=== PATIENT | male | born 1985 | race African-American/Black ===

== ENCOUNTER 2024-08-01 23:23 | Emergency (ER) | payer OTHER ==
[2024-08-02 00:41] LABS: Absolute Basophils 0.1 K/uL (0-0.5); Absolute Eosinophils 0.6 K/uL (0-0.5); Absolute Lymphocytes (CBC) 1.1 K/uL (0.7-4.9); Absolute Monocytes 0.4 K/uL (0.1-1.3); Absolute Neutrophil 2.4 K/uL (1.8-8.0); Basophils % 1.2 % (0-1.3); Eosinophils % 13.5 % (0-4.4); Hematocrit 20.2 % (39.6-49.0); Hemoglobin 6.7 g/dL (13.6-17.9); Lymphocytes % 24.5 % (15.3-44.8); MCHC 33.2 g/dL (32.0-36.0); MCV 90.2 fL (80-100); MPV 9.1 fL (7.6-11.3); Neutrophils % 52.8 % (41.7-73.7); Nucleated Red Blood Cells % 0.3 % (0-0); PT Prothrombin Time 11.8 SECONDS (10-13.0); Platelets 134 thou/uL (152-406); Protime INR 1.04; RBC Red Blood Cell Count 2.24 M/uL (4.33-5.43); Red Cell Distribution Width 16.8 % (12.1-15.2)
[2024-08-02 01:13] LABS: ALT/SGPT 29 U/L (16-61); AST/SGOT 22 U/L (15-37); Albumin/Globulin Ratio 0.7 (1.1-1.8); Alkaline Phosphatase 126 U/L (45-117); BUN Blood Urea Nitrogen 60 mg/dL (7-18); Bicarbonate 31 mEq/L (21-32); Bilirubin Total 0.3 mg/dL (0.2-1.0); Globulin 4.1 g/dL (2.3-3.5); Glomerular Filtration Rate 4 ml/min (=/>90); Glucose Level 103 mg/dL (74-106); NT PRO-BNP 109513 pg/mL (<125); Protein, Total 7.1 g/dL (6.4-8.2); Sodium Level 139 mEq/L (136-145)
[2024-08-02 01:15] LABS: Bilirubin Direct < 0.2 mg/dL (0-0.2); Bilirubin Indirect, Calculated 0.1 mg/dL (0.2-0.8)
[2024-08-02 01:16] LABS: Troponin High Sensitivity 64.5 pg/mL (<58.9)
--- NOTE | 2024-08-02 01:20 | ER ---
Nurse's Notes [facility] Name: Maynor Mariano Age: 38 yrs Sex: Male : 1985 Arrival Date: 08/01/2024 Time: 23:23 Bed 20 Private MD: Diagnosis: Anemia in chronic kidney disease;Other specified anemias Presentation: 08/01 23:40 Chief complaint: Patient states: CARE PROVIDER NOTIFIED OF LOW HEMOGLOBIN LEVEL AT 6. ha1 23:40 Coronavirus screen: Client denies travel out of the [place] in the last 14 days. Ebola ha1 Screen: No symptoms or risks identified at this time. Initial Sepsis Screen: Does the patient meet any 2 criteria? No. Patient's initial sepsis screen is negative. Does the patient have a suspected source of infection? No. Patient's initial sepsis screen is negative. Risk Assessment: Do you want to hurt yourself or someone else? Patient reports no desire to harm self or others. Onset of symptoms was August 02, 2024. 23:40 Method Of Arrival: Ambulatory ha1 23:40 Acuity: ROSA ELENA 3 ha1 Triage Assessment: 00:40 General: Appears comfortable, Behavior is calm, cooperative. Pain: Denies pain. Neuro: ha1 Level of Consciousness is awake, alert, obeys commands, Oriented to person, place, time, situation. Cardiovascular: Patient's skin is warm and dry. Respiratory: Airway is patent Respiratory effort is even, unlabored, Respiratory pattern is regular, symmetrical. Historical: - Allergies: 00:40 No Known Allergies; ha1 - PMHx: 00:40 Hypertensive disorder; ha1 - PSHx: 00:40 DIALYSIS TUE, THURS, SAT. (2024); ha1 - Immunization history:: Adult Immunizations up to date. - Infectious Disease History:: Denies. - Social history:: Smoking status: Patient reports use of chewing tobacco. - Family history:: not pertinent. Screenin/15 00:33 [facility] ED Fall Risk Assessment (Adult) History of falling in the last 3 months, bm8 including since admission No falls in past 3 months (0 pts) Confusion or Disorientation No (0 pts) Intoxicated or Sedated No (0 pts) Impaired Gait No (0 pts) Mobility Assist Device Used No (0 pt) Altered Elimination No (0 pt) Score/Fall Risk Level 0 - 2 = Low Risk Oriented to surroundings, Maintained a safe environment, Educated pt \T\ family on fall prevention, incl call for assistance when getting out of bed, Assessed \T\ reinforced patient's understanding of fall precautions, Hourly rounding (assess needs \T\ fall precautionary measures) done, Used ambulatory aids as needed (educated on \T\ assisted with), Used gait belt as appropriate. Abuse screen: Denies threats or abuse. Nutritional screening: No deficits noted. Tuberculosis screening: No symptoms or risk factors identified. Assessment: 00:33 Reassessment: Patient appears in no apparent distress at this time. Patient and/or bm8 family updated on plan of care and expected duration. Pain level reassessed. Patient is alert, oriented x 3, equal unlabored respirations, skin warm/dry/pink. Patient denies pain at this time. 01:24 Reassessment: Patient appears in no apparent distress at this time. No changes from 8 previously documented assessment. Patient is alert, oriented x 3, equal unlabored respirations, skin warm/dry/pink. Pt has decided that he would prefer to come back tomorrow after dialysis. MD is aware and has discharged pt after speaking with him. Vital Signs: 08/01 23:40 BP 168 / 104; Pulse 66; Resp 19 S; Temp 98.2(O); Pulse Ox 100% on R/A; Weight 90.72 kg; ha1 Height 6 ft. 2 in. ; 08/02 00:33 BP 154 / 96; Pulse 75; Resp 18; Temp 98.2; Pulse Ox 100% ; Pain 0/10; bm8 01:24 BP 149 / 97; Pulse 69; Resp 15; Temp 98.2; Pulse Ox 100% ; Pain 0/10; bm8 08/01 23:40 Body Mass Index 25.68 (90.72 kg, 187.96 cm) ha1 08/02 00:33 Pain Scale: Adult bm8 01:24 Pain Scale: Adult bm8 [place] Coma Score: 00:33 Eye Response: spontaneous(4). Motor Response: obeys commands(6). Verbal Response: bm8 oriented(5). Total: 15. 01:24 Eye Response: spontaneous(4). Motor Response: obeys commands(6). Verbal Response: bm8 oriented(5). Total: 15. 20:13 Eye Response: spontaneous(4). Motor Response: obeys commands(6). Verbal Response: sp4 oriented(5). Total: 15. ED Course: 08/01 23:26 Patient arrived in ED. gm2 23:27 Percy Ortega MD is Attending Physician. sp4 08/02 00:01 Triage completed. ha1 00:11 Marquise Tripp, RN is Primary Nurse. bm8 00:33 Patient has correct armband on for positive identification. Bed in low position. Call bm8 light in reach. Side rails up X 1. Adult w/ patient. Client placed on continuous cardiac and pulse oximetry monitoring. NIBP monitoring applied. cardiac monitor technician on. Pulse ox on. NIBP on. Door closed. Noise minimized. Pillow given. Verbal reassurance given. Head of bed elevated. 00:33 No provider procedures requiring assistance completed. Initial lab(s) drawn, by , yanci sent to lab. EKG done, by ED staff, reviewed by Percy Ortega MD T\T\S collected, blood band applied to patient. Inserted saline lock: 20 gauge in right antecubital area, using aseptic technique. Blood collected. Flushed with 10 mL NS. Patient maintains SpO2 saturation greater than 95% on room air. 01:19 Eliazar Reese DO is Referral Physician. sp4 01:24 Provided Education on: post er care. bm8 01:24 IV discontinued, intact, bleeding controlled, No redness/swelling at site. Pressure bm8 dressing applied. 01:26 Arm band placed on right wrist. bm8 Administered Medications: No medications were administered Medication: 00:33 VIS not applicable for this client. bm8 Outcome: 01:20 Discharge ordered by . sp4 01:24 Discharged to home ambulatory, bm8 01:24 Condition: stable 01:24 Discharge instructions given to patient, family, Instructed on discharge instructions, follow up and referral plans. no drinking with medication, no driving heavy equipment, medication usage, safety practices, Demonstrated understanding of instructions, follow-up care, medications, 01:26 Patient left the ED. bm8 Signatures: Tiara Stacy RN RN 1 Percy rOtega MD MD sp4 Sussy Rivera 2 Marquise Tripp, RN RN bm8
--- NOTE | 2024-08-02 01:20 | EDPHYS ---
Physician Documentation [facility] Name: Maynor Mariano Age: 38 yrs Sex: Male : 1985 Arrival Date: 08/01/2024 Time: 23:23 Bed 20 Private MD: ED Physician Percy Ortega HPI: 08/01 23:27 This 38 yrs old Black Female presents to ER via Unassigned with complaints of Abnormal sp4 Lab Results. 08/02 20:13 38-year-old male with history of end-stage renal disease on hemodialysis for the past 4 sp4 years presents with report of low hemoglobin. Patient states his blood counts were checked 2 days ago and hemoglobin came up to 6. Patient is here for evaluation. Denied any symptoms.. Historical: - Allergies: 08/01 00:40 No Known Allergies; ha1 - PMHx: 00:40 Hypertensive disorder; ha1 - PSHx: 00:40 DIALYSIS TUE, TH, SAT. (2024); ha1 - Immunization history:: Adult Immunizations up to date. - Infectious Disease History:: Denies. - Social history:: Smoking status: Patient reports use of chewing tobacco. - Family history:: not pertinent. ROS: 08/02 20:13 Constitutional: Negative for fever, chills, and weight loss, sp4 All other systems are negative, Exam: 20:13 Constitutional: This is a well developed, well nourished patient who is awake, alert, sp4 and in no acute distress. Head/Face: Normocephalic, atraumatic. Eyes: Pupils equal round and reactive to light, extra-ocular motions intact. Lids and lashes normal. Conjunctiva and sclera are not injected. Cornea within normal limits. Periorbital areas with no swelling, redness, or edema. ENT: Nares patent. No nasal discharge, no septal abnormalities noted. Tympanic membranes are normal and external auditory canals are clear. Oropharynx with no redness, swelling, or masses, exudates, or evidence of obstruction, uvula midline. Mucous membranes moist. Neck: Trachea midline, no thyromegaly or masses palpated, and no cervical lymphadenopathy. Supple, full range of motion without nuchal rigidity, or vertebral point tenderness. Chest/axilla: Normal chest wall appearance and motion. Nontender with no deformity. No lesions are appreciated. Cardiovascular: Regular rate and rhythm with a normal S1 and S2. No gallops, murmurs, or rubs. Normal PMI, no JVD. No pulse deficits. Respiratory: Lungs have equal breath sounds bilaterally, clear to auscultation and percussion. No rales, rhonchi or wheezes noted. No increased work of breathing, no retractions or nasal flaring. Abdomen/GI: Soft, with normal bowel sounds. No distension or tympany. No guarding or rebound. No evidence of tenderness throughout. Back: No spinal tenderness. No costovertebral tenderness. Skin: Warm, dry with normal turgor. Normal color with no rashes, no lesions, and no evidence of cellulitis. MS/ Extremity: Pulses equal, no cyanosis. Neurovascular intact. Full, normal range of motion. Neuro: Awake and alert, GCS 15, oriented to person, place, time, and situation. Cranial nerves II-XII grossly intact. Motor strength 5/5 in all extremities. Sensory grossly intact. Psych: Awake, alert, with orientation to person, place and time. Behavior, mood, and affect are within normal limits 20:13 ECG was reviewed by the Attending Physician. EKG at 0038 normal sinus rhythm rate 65 otherwise normal EKG, prolonged QT Vital Signs: 08/01 23:40 BP 168 / 104; Pulse 66; Resp 19 S; Temp 98.2(O); Pulse Ox 100% on R/A; Weight 90.72 kg; ha1 Height 6 ft. 2 in. ; 08/02 00:33 BP 154 / 96; Pulse 75; Resp 18; Temp 98.2; Pulse Ox 100% ; Pain 0/10; bm8 01:24 BP 149 / 97; Pulse 69; Resp 15; Temp 98.2; Pulse Ox 100% ; Pain 0/10; bm8 08/01 23:40 Body Mass Index 25.68 (90.72 kg, 187.96 cm) [facility] 08/02 00:33 Pain Scale: Adult bm8 01:24 Pain Scale: Adult bm8 [place] Coma Score: 00:33 Eye Response: spontaneous(4). Motor Response: obeys commands(6). Verbal Response: bm8 oriented(5). Total: 15. 01:24 Eye Response: spontaneous(4). Motor Response: obeys commands(6). Verbal Response: bm8 oriented(5). Total: 15. 20:13 Eye Response: spontaneous(4). Motor Response: obeys commands(6). Verbal Response: sp4 oriented(5). Total: 15. MDM: 00:38 Differential Diagnosis altered mental status, sepsis, flu, Symptomatic anemia. Data sp4 reviewed: lab test result(s), EKG. Consideration of Admission/Observation Escalation of care including admission/observation considered. ED course: Patient was explained that he needs blood transfusion which will take several hours and will probably necessitate admission to the hospital. Patient states that at this time he must go home but he states he will return later today for the management in the emergency room. Patient at this time is stable vital signs and we deem appropriate discharge on the informed basis.. 01:18 Data reviewed: vital signs, nurses notes. ED course: Patient declines transfusion at sp4 this time states he must go home and come back tomorrow for transfusion and further evaluation. We will provide patient with informed discharge. Vital signs are stable. Patient does understand the risks of leaving at this time but since he is overall stable informed discharge is appropriate. 01:20 Medical Screening Exam initiated 08/01 23:57 Order name: Basic Metabolic Panel; Complete Time: 01:08/01 23:57 Order name: CBC with Diff; Complete Time: 01:08/01 23:57 Order name: LFT's; Complete Time: 01:08/01 23:57 Order name: NT PRO-BNP; Complete Time: 01:08/01 23:57 Order name: PT-INR; Complete Time: 01:08/01 23:57 Order name: Troponin HS; Complete Time: 01:08/01 23:58 Order name: Type And Screen; Complete Time: 01:08/01 23:57 Order name: EKG; Complete Time: 23:57 08/01 23:57 Order name: Cardiac monitoring; Complete Time: 00:33 08/01 23:57 Order name: EKG - Nurse/Tech; Complete Time: 00:33 08/01 23:57 Order name: IV Saline Lock; Complete Time: 00:33 08/01 23:57 Order name: Labs collected and sent; Complete Time: 00:33 sp4 08/01 23:57 Order name: O2 Per Protocol; Complete Time: 00:33 sp4 08/01 23:57 Order name: O2 Sat Monitoring; Complete Time: 00:33 sp4 EC:38 Rate is 65 beats/min. Rhythm is regular, Normal Sinus Rhythm. QRS [place] is Normal. [place] sp4 interval is normal. QRS interval is normal. QT interval is prolonged. No Q waves. T waves are Normal. No ST changes noted. Clinical impression: No evidence of ischemia. Interpreted by me. Reviewed by me. Administered Medications: No medications were administered Disposition Summary: 08/02/24 01:20 Discharge Ordered Problem: new sp4 Symptoms: have improved sp4 Condition: Stable sp4 Diagnosis - Anemia in chronic kidney disease sp4 - Other specified anemias sp4 Followup: sp4 - With: Eliazar Reese DO - When: 7 - 10 days - Reason: Recheck today's complaints Discharge Instructions: - Discharge Summary Sheet sp4 - Anemia sp4 Forms: - Patient Portal Instructions sp4 Signatures: Dispatcher [employer] EDMS Tiara Stacy RN RN ha1 Percy Ortega MD MD sp4 Corrections: (The following items were deleted from the chart) 08/01 23:57 23:57 BASIC METABOLIC PANEL+C.LAB.BRZ ordered. EDMS EDMS 23:57 23:57 CBC+H.LAB.BRZ ordered. EDMS EDMS 23:57 23:57 HEPATIC FUNCTION+C.LAB.BRZ ordered. EDMS EDMS 23:57 23:57 PROBNP+C.LAB.BRZ ordered. EDMS EDMS 23:58 23:57 PROTIME (+INR)+COAG.LAB.BRZ ordered. EDMS EDMS 23:58 23:57 Troponin High Sensitivity+C.LAB.BRZ ordered. EDMS EDMS
[2024-08-02 01:33] VITALS: TEMP 98.2; O2SAT 100
[2024-08-02 01:36] VITALS: BP 149/97
== END 2024-08-02 01:26 | disposition home or self-care (01) ==
LOC: EDSEX 23:23 → ER 23:23
DX: I12.0 Hypertensive chronic kidney disease with stage 5 chronic kidney disease or end stage renal disease (principal); D63.1 Anemia in chronic kidney disease; D64.89 Other specified anemias; N18.6 End stage renal disease; Z99.2 Dependence on renal dialysis; F17.220 Nicotine dependence, chewing tobacco, uncomplicated
CPT/HCPCS: 36415; 80048; 80076; 83880; 84484; 85025; 85610; 86850; 86900; 86901; 93005

== ENCOUNTER 2024-08-02 10:39 | Inpatient (IN) | payer OTHER ==
[2024-08-02 11:50] LABS: Absolute Basophils 0.1 K/uL (0-0.5); Absolute Eosinophils 0.6 K/uL (0-0.5); Absolute Lymphocytes (CBC) 0.8 K/uL (0.7-4.9); Absolute Monocytes 0.4 K/uL (0.1-1.3); Basophils % 1.3 % (0-1.3); Eosinophils % 12.5 % (0-4.4); Hematocrit 19.9 % (39.6-49.0); Hemoglobin 6.6 g/dL (13.6-17.9); Lymphocytes % 17.2 % (15.3-44.8); MCHC 33.1 g/dL (32.0-36.0); MCV 90.5 fL (80-100); MPV 8.5 fL (7.6-11.3); Monocytes % 7.7 % (3.3-12.3); Neutrophils % 61.3 % (41.7-73.7); Nucleated Red Blood Cells % 0.2 % (0-0); Platelets 132 thou/uL (152-406); Red Cell Distribution Width 16.5 % (12.1-15.2)
[2024-08-02] MEDS ORDERED: NA CHLORIDE 0.9% 250 ML ONE (13:59)
--- NOTE | 2024-08-02 15:40 | ER ---
Nurse's Notes [facility] Name: Maynor Mariano Age: 38 yrs Sex: Male : 1985 Arrival Date: 08/02/2024 Time: 10:39 Bed 6 Private MD: Diagnosis: End-stage renal disease;Symptomatic anemia Presentation: 08/02 10:47 Chief complaint: Patient states: my Hgb is at a 6 , had labs drawn last night , was iw seen here last night and was told he needed a blood transfusion but was not prepared to wait the 8 hours. Coronavirus screen: At this time, the client does not indicate any symptoms associated with coronavirus-19. Ebola Screen: No symptoms or risks identified at this time. Initial Sepsis Screen: Does the patient meet any 2 criteria? No. Patient's initial sepsis screen is negative. Does the patient have a suspected source of infection? No. Patient's initial sepsis screen is negative. Risk Assessment: Do you want to hurt yourself or someone else? Patient reports no desire to harm self or others. 10:47 Method Of Arrival: Ambulatory iw 10:47 Acuity: ROSA ELENA 3 iw 10:48 Onset of symptoms was August 02, 2024. iw Triage Assessment: 10:55 General: Appears in no apparent distress. Behavior is calm, cooperative. Pain: Denies iw pain. Neuro: Level of Consciousness is awake, alert, obeys commands, Oriented to person, place, time, situation, Moves all extremities. Full function. Respiratory: Respiratory effort is even, unlabored, Respiratory pattern is regular, symmetrical. Historical: - Allergies: 10:50 No Known Allergies; iw - Home Meds: 10:50 hydralazine 25 mg oral tablet 4 tabs 3 times per day [Active]; carvedilol 25 mg oral iw tablet 2 tab 2 times per day [Active]; lisinopril 20 mg Oral tablet nightly [Active]; 10:53 nifedipine 90 mg oral tablet, extended release 2 times per day [Active]; iw - PMHx: 10:50 Hypertensive disorder; iw - PSHx: 10:50 DIALYSIS TUE (2024); iw - Immunization history:: Adult Immunizations not up to date. - Infectious Disease History:: Denies. - Social history:: Smoking status: Patient reports the use of cigarette tobacco products, cigars, Reported history of juuling and/or vaping. - Family history:: not pertinent. Screenin:31 [facility] ED Fall Risk Assessment (Adult) History of falling in the last 3 months, ap3 including since admission No falls in past 3 months (0 pts) Confusion or Disorientation No (0 pts) Intoxicated or Sedated No (0 pts) Impaired Gait No (0 pts) Mobility Assist Device Used No (0 pt) Altered Elimination No (0 pt) Score/Fall Risk Level 0 - 2 = Low Risk Oriented to surroundings, Maintained a safe environment, Educated pt \T\ family on fall prevention, incl call for assistance when getting out of bed, Assessed \T\ reinforced patient's understanding of fall precautions, Hourly rounding (assess needs \T\ fall precautionary measures) done, Used ambulatory aids as needed (educated on \T\ assisted with). Abuse screen: Denies threats or abuse. Nutritional screening: No deficits noted. Tuberculosis screening: No symptoms or risk factors identified. Assessment: 11:30 General: Appears in no apparent distress. Behavior is calm, cooperative, appropriate ap3 for age. Pain: Denies pain. Neuro: Level of Consciousness is awake, alert, obeys commands, Oriented to person, place, time, situation, Appropriate for age. Cardiovascular: Patient's skin is warm and dry. Respiratory: Airway is patent Respiratory effort is even, unlabored, Respiratory pattern is regular, symmetrical. 16:27 Reassessment: pt transported to dialysis. Efren Beasleysupervisor payroll states patient will ss receive bed assignment after dialysis. Vital Signs: 10:47 BP 141 / 90; Pulse 65; Resp 16; Temp 98; Pulse Ox 99% on R/A; Weight 91.63 kg; Height 6 iw ft. 1 in. ; 14:58 BP 155 / 93; Pulse 67; Resp 15; Temp 97.6; Pulse Ox 100% ; ap3 10:47 Body Mass Index 26.65 (91.63 kg, 185.42 cm) iw ED Course: 10:41 Patient arrived in ED. im 10:43 Imer Meeks MD is Attending Physician. rt 10:48 Triage completed. iw 10:52 Arm band placed on. iw 11:30 Radha Garza, EMILIE is Primary Nurse. ap3 11:30 Initial lab(s) drawn, by me. Inserted saline lock: 22 gauge in right antecubital area, ap3 using aseptic technique. Blood collected. Flushed with 10 mL NS. 11:45 Patient has correct armband on for positive identification. Bed in low position. Call ap3 light in reach. Side rails up X 1. Pulse ox on. NIBP on. Door closed. Noise minimized. Warm blanket given. Pillow given. 13:05 Provided Education on: Blood Transfusion. ap3 15:15 Diet tray given. PO fluids given. ap3 15:39 Herber Samaniego is Hospitalizing Provider. rt 16:17 No provider procedures requiring assistance completed. Patient admitted, IV remains in ap3 place. Administered Medications: No medications were administered Medication: 15:57 Blood products: PRBCs X 1 unit given. ap3 15:58 VIS not applicable for this client. ap3 Outcome: 15:39 Decision to Hospitalize by Provider. rt 16:26 Admitted to accompanied by nurse, via stretcher, on monitor, with chart, Report called ss to EMILIE Perez Dialysis nurse 16:26 Condition: good 16:26 Instructed on the need for admit, 16:28 Patient left the ED. ss Signatures: Brigette Vines RN RN Joslyn Jensen RN RN Radha Garza RN RN ap3 Imer Meeks MD MD rt Aby López Corrections: (The following items were deleted from the chart) 10:49 10:47 Chief complaint: Patient states: my Hgb is at a 6 , had labs drawn last night iw iw 10:52 10:47 BP 141 / 90; Pulse 65bpm; Resp 16bpm; Pulse Ox 99% RA; Temp 98F; iw iw 10:53 10:50 Home Meds: nifedipine 60 mg Oral tablet, extended release 2 times per day; iw iw
--- NOTE | 2024-08-02 15:40 | EDPHYS ---
Physician Documentation [facility] Name: Maynor Mariano Age: 38 yrs Sex: Male : 1985 Arrival Date: 08/02/2024 Time: 10:39 Bed 6 Private MD: ED Physician Imer Meeks HPI: 08/02 11:10 This 38 yrs old Black Male presents to ER via Ambulatory with complaints of Abnormal rt Lab Results. 11:10 Patient is a Thursday, , Thursday dialysis patient who was seen last night for rt symptomatic anemia to 6.7. Ports feeling fatigued, somewhat short of breath but denies other acute complaints, denies active bleeding. Declined transfusion at that time, is back today for transfusion. Denies other acute complaints, symptoms are moderate in severity, no other aggravating or elevating factors.. Historical: - Allergies: 10:50 No Known Allergies; iw - Home Meds: 10:50 hydralazine 25 mg oral tablet 4 tabs 3 times per day [Active]; carvedilol 25 mg oral iw tablet 2 tab 2 times per day [Active]; lisinopril 20 mg Oral tablet nightly [Active]; 10:53 nifedipine 90 mg oral tablet, extended release 2 times per day [Active]; iw - PMHx: 10:50 Hypertensive disorder; iw - PSHx: 10:50 DIALYSIS TUE (2024); iw - Immunization history:: Adult Immunizations not up to date. - Infectious Disease History:: Denies. - Social history:: Smoking status: Patient reports the use of cigarette tobacco products, cigars, Reported history of juuling and/or vaping. - Family history:: not pertinent. ROS: 11:10 Cardiovascular: Negative for chest pain, palpitations, and edema, Abdomen/GI: Negative rt for abdominal pain, nausea, vomiting, diarrhea, and constipation, MS/Extremity: Negative for injury and deformity, Skin: Negative for injury, rash, and discoloration, Neuro: Negative for headache, weakness, numbness, tingling, and seizure, 11:10 Constitutional: Positive for fatigue, Negative for fever, 11:10 Respiratory: Positive for shortness of breath, Negative for cough, Exam: 11:10 Constitutional: This is a well developed, well nourished patient who is awake, alert, rt and in no acute distress. Head/Face: Normocephalic, atraumatic. Chest/axilla: Normal chest wall appearance and motion. Nontender with no deformity. No lesions are appreciated. Cardiovascular: Regular rate and rhythm with a normal S1 and S2. No gallops, murmurs, or rubs. Normal PMI, no JVD. No pulse deficits. Respiratory: Lungs have equal breath sounds bilaterally, clear to auscultation and percussion. No rales, rhonchi or wheezes noted. No increased work of breathing, no retractions or nasal flaring. Abdomen/GI: Soft, non-tender, with normal bowel sounds. No distension or tympany. No guarding or rebound. No evidence of tenderness throughout. Skin: Warm, dry with normal turgor. Normal color with no rashes, no lesions, and no evidence of cellulitis. MS/ Extremity: Pulses equal, no cyanosis. Neurovascular intact. Full, normal range of motion. Neuro: Awake and alert, GCS 15, oriented to person, place, time, and situation. Cranial nerves II-XII grossly intact. Motor strength 5/5 in all extremities. Sensory grossly intact. Cerebellar exam normal. Normal gait. Vital Signs: 10:47 BP 141 / 90; Pulse 65; Resp 16; Temp 98; Pulse Ox 99% on R/A; Weight 91.63 kg; Height 6 iw ft. 1 in. ; 14:58 BP 155 / 93; Pulse 67; Resp 15; Temp 97.6; Pulse Ox 100% ; ap3 10:47 Body Mass Index 26.65 (91.63 kg, 185.42 cm) iw MDM: 10:53 Medical Screening Exam initiated rt 15:39 Differential Diagnosis Anemia of chronic disease, end-stage renal disease. Data rt reviewed: vital signs, nurses notes, lab test result(s). Consideration of Admission/Observation Patient was admitted/placed on observation. Management of patient was discussed with the following: Operations Officer Trust Department: After initial discussion with nephrology, the original plan was to give patient 1 unit of blood, then get him to his chair, after further discussions, patient would not be able to get to his chair today as well as the lead massage therapist is concerned about a quicker drop than expected of his hemoglobin. They wish for the patient to be admitted to the hospital for dialysis.. Care significantly affected by the following chronic conditions: Chronic Kidney Disease. Counseling: I had a detailed discussion with the patient and/or guardian regarding the historical points, exam findings, and any diagnostic results supporting the discharge/admit diagnosis, lab results, the need for further work-up and treatment in the hospital. Response to treatment: the patient's symptoms have mildly improved after treatment. 08/02 10:58 Order name: CBC with Diff; Complete Time: 13:06 rt 08/02 10:58 Order name: Type And Screen rt 08/02 11:11 Order name: Bb Add On bd 08/02 11:40 Order name: Type and Screen EDMS 08/02 12:12 Order name: Packed RBC Leukored EDMS 08/02 14:18 Order name: CMP rt 08/02 15:41 Order name: Hep B surface AG w/Reflex EDMS 08/02 15:41 Order name: Hepatitis B Surface Ab, QL/QN EDMS 08/02 16:10 Order name: Basic Metabolic Panel EDMS 08/02 16:10 Order name: Basic Metabolic Panel EDMS 08/02 16:10 Order name: Basic Metabolic Panel EDMS 08/02 16:10 Order name: Basic Metabolic Panel EDMS 08/02 16:10 Order name: CBC with Automated Diff EDMS 08/02 16:10 Order name: CBC with Automated Diff EDMS 08/02 16:10 Order name: CBC with Automated Diff EDMS 08/02 16:10 Order name: CBC with Automated Diff EDMS 08/02 16:10 Order name: Magnesium EDMS 08/02 16:10 Order name: Magnesium EDMS 08/02 16:10 Order name: Magnesium EDMS 08/02 16:10 Order name: Magnesium EDMS 08/02 16:10 Order name: Phosphorus EDMS 08/02 16:10 Order name: Phosphorus EDMS 08/02 16:10 Order name: Phosphorus EDMS 08/02 16:10 Order name: Phosphorus EDMS 08/02 16:10 Order name: CONS Physician Consult EDMS Administered Medications: No medications were administered Disposition Summary: 08/02/24 15:39 Hospitalization Ordered Notes: Hospitalization Status: Observation rt Provider: Herber Smaaniego rt Location: Telemetry/MedSurg (observation) rt Condition: Stable rt Problem: an ongoing problem rt Symptoms: have improved rt Bed/Room Type: Standard rt Room Assignment: rt Diagnosis - End-stage renal disease rt - Symptomatic anemia rt Forms: - Medication Reconciliation Form rt - SBAR form rt - Leadership Thank You Letter rt Critical care time excluding procedures: 15:40 Critical care time: Bedside Care: 30 minutes, Consultation: 5 minutes. Total time: 35 rt minutes Signatures: Dispatcher [employer] Brigette Montano RN RN iw [place], Ryan, MD MD rt Corrections: (The following items were deleted from the chart) 10:53 10:50 Home Meds: nifedipine 60 mg Oral tablet, extended release 2 times per day; isaac gray
[2024-08-02] MEDS ORDERED: ACETAMINOPHEN 325 MG TABLET PO PRN (16:03)
--- NOTE | 2024-08-02 16:03 | P.HP ---
Certification for Inpatient Patient admitted to: Inpatient With expected LOS: >2 Midnights Patient will require the following post-hospital care: None Practitioner: I am a practitioner with admitting privileges, knowledge of patient current condition, hospital course, and medical plan of care. Services: Services provided to patient in accordance with Admission requirements found in Title 42 Section 412.3 of the Code of Federal Regulations Patient History Date of Service: 08/02/24 Reason for admission: Symptomatic anemia, ESRD History of Present Illness: Maynor Mariano is a 38 year old male with Pmhx ESRD dialysis TTHS, anemia, and hypertension who presents to the ED with fatigue, H/H 6.6/19.9. He reports coming to the ED yesterday and refused transfusion at that time. He has returned with increased fatigue and abnormal lab values. He is now agreeable for transfusion and 1 unit packed red blood cells started transfusing in the ED prior to going to dialysis were was completed Laboratory evaluation H&H 6.6/19.9, platelets 132, Eosinophils 12.5. Maynor will be admitted to hospitalist service for dialysis and Anemia of chronic disease. Dr. Reese consulted. Allergies No Known Allergies Allergy (Unverified 08/02/24 15:30) Home Medications: Carvedilol [Coreg] 25 mg PO BID 08/02/24 Hydralazine [Apresoline*] 100 mg PO TID 08/02/24 Nifedipine [Procardia Xl] 90 mg PO BID* 08/02/24 - Past Medical/Surgical History -: Anemia of chronic disease -: ESRD -: HTN - Social History Smoking Status: Never smoker Alcohol use: No CD- Drugs: No Review of Systems Other: per HPI Physical Examination - Physical Exam General: Alert, In no apparent distress, Oriented x3 HEENT: Atraumatic, Normocephalic, PERRLA Neck: Supple, 2+ carotid pulse no bruit Respiratory: Clear to auscultation bilaterally, Normal air movement Cardiovascular: Normal pulses, Regular rate/rhythm, Normal S1 S2 Capillary refill: <2 Seconds Gastrointestinal: Normal bowel sounds, Soft and benign Musculoskeletal: No clubbing Integumentary: No rashes Neurological: Normal speech, Normal tone - Studies Laboratory Data (last 24 hrs) 08/02/24 11:39 WBC 4.90 Hgb 6.6 L Hct 19.9 L Plt Count 132 L Assessment and Plan - Plan Assessment and Plan Symptomatic anemia ESRD on dialysis [facility] Anemia of chronic disease Fatigue -H/H 6.6/19.9, continue to monitor -Transfusion in the ED, 1 PRBC, repeat H/H -nephrology consulted, immediate dialysis today -BUN/creatinine 60/13.3, monitor in the AM labs -Oliguric HTN -continue home medications as appropriate DVT ppx heparin Full code LOS 2-3 days Discharge Plan: Home Plan to discharge in: 24 Hours - Advance Directives Does patient have a Living Will: No Does patient have a Durable POA for Healthcare: No
[2024-08-02] MEDS: HEPARIN 5000 UNIT/ML 1 ML VIAL SQ SCH (17:00)
[2024-08-02 20:57] LABS: Hematocrit 26.2 % (39.6-49.0); Hemoglobin 8.7 g/dL (13.6-17.9)
[2024-08-03] MEDS: GUAIFENESIN/CODEINE 5ML UCUP PO PRN (00:18)
--- NOTE | 2024-08-03 04:54 | RAD REPORT ---
PROCEDURE: XR Chest, 2 Views CLINICAL INDICATION: The patient is 38 years old and is Male; SOB, cough TECHNIQUE: Frontal and lateral views of the chest. COMPARISON: No relevant prior studies available. FINDINGS: LUNGS: Bilateral perihilar streaky and central predominant perihilar and basilar hazy alveolar opac ities, favoring atypical pneumonia over pulmonary edema. PLEURAL SPACE: No appreciable pleural effusion or pneumothorax. HEART: See below. MEDIASTINUM: Prominence of the cardiomediastinal silhouette, likely exaggerated secondary to portab le technique, lordotic positioning, and patient body habitus. BONES/JOINTS: Multilevel spondylosis. VASCULATURE: Azygous vein appears within normal limits. IMPRESSION: Bilateral perihilar streaky and central predominant perihilar and basilar hazy alveolar opacities, fa voring atypical pneumonia over pulmonary edema. Electronically signed by: Fei Rod MD 08/03/2024 04:45 AM CDT RP Due to temporary technical issues with the PACS/Perfect reporting system, reports are being erika d by the in-house radiologist without review as a courtesy to ensure prompt reporting the interpreting radiologist is fully responsible for the content of the report. Transcribed Date/Time: 08/03/2024 4:53 AM
[2024-08-03 04:58] LABS: Absolute Basophils 0.1 K/uL (0-0.5); Absolute Eosinophils 0.7 K/uL (0-0.5); Absolute Lymphocytes (CBC) 0.7 K/uL (0.7-4.9); Absolute Monocytes 0.4 K/uL (0.1-1.3); Absolute Neutrophil 5.5 K/uL (1.8-8.0); Hematocrit 23.6 % (39.6-49.0); Lymphocytes % 9.3 % (15.3-44.8); MCH 29.5 pg (27.0-35.0); MCHC 33.6 g/dL (32.0-36.0); MCV 87.7 fL (80-100); MPV 8.7 fL (7.6-11.3); Monocytes % 5.3 % (3.3-12.3); Neutrophils % 74.4 % (41.7-73.7); Nucleated Red Blood Cells % 0.3 % (0-0); Platelets 137 thou/uL (152-406); Red Cell Distribution Width 19.9 % (12.1-15.2)
[2024-08-03] MEDS: IPRATROPIUM BROM 0.5MG/2.5ML ONE (04:58)
[2024-08-03] MEDS: ALBUTEROL 2.5 MG/3 ML NEB SOL ONE (04:58)
[2024-08-03 05:15] LABS: Albumin 2.9 g/dL (3.4-5.0); Albumin/Globulin Ratio 0.7 (1.1-1.8); Anion Gap 11.1 mEq/L (5.0-15.0); Bilirubin Total 0.5 mg/dL (0.2-1.0); Magnesium 2.1 mg/dL (1.6-2.4); Phosphorus 3.3 mg/dL (2.5-4.9); Potassium 4.1 mEq/L (3.5-5.1); Protein, Total 6.9 g/dL (6.4-8.2)
[2024-08-03] MEDS: METHYLPREDNISOLONE 40 MG INJ IV SCH ×2 (06:00→06:07)
[2024-08-03] MEDS: FUROSEMIDE 40 MG/4 ML VIAL IV ONE (06:06)
[2024-08-03] MEDS: AZITHROMYCIN 250 MG TAB PO SCH (06:07)
[2024-08-03] MEDS: CEFEPIME 1 GM in NA CHLORIDE 0.9% 100 ML IV SCH (06:08)
[2024-08-03 07:00] LABS: Arterial Blood Carboxyhemoglob 1.9 % (0-1.5); Blood Gas Oxyhemoglobin 89.6 % (94-97)
[2024-08-03] MEDS: ALBUTEROL 2.5 MG/3 ML NEB SOL NEB SCH (07:00)
[2024-08-03] MEDS: IPRATROPIUM BROM 0.5MG/2.5ML NEB SCH (07:00)
[2024-08-03 07:01] LABS: Blood Gas THB 7.9 g/dl (12-18)
[2024-08-03] MEDS ORDERED: CEFEPIME 1 GM in NA CHLORIDE 0.9% 100 ML IV SCH (09:00)
[2024-08-03] MEDS ORDERED: AZITHROMYCIN 250 MG TAB PO SCH (09:00)
--- NOTE | 2024-08-03 10:08 | RAD REPORT ---
EXAM: CT Chest For Pe Angio TECHNIQUE: CT angiogram of the chest was performed following intravenous contrast administration, inc luding sagittal and coronal as well as maximum intensity projection reformats. One or more of the following dose reduction techniques were used: Automated exposure control, adjustment of the mA and k V according to patient size, and iterative reconstruction. Unless otherwise specified, incidental findings do not require dedicated imaging follow-up. INDICATION: [facility] MAIN hypoxia Y COMPARISON: Chest radiograph of the same day. FINDINGS: LINES/TUBES: None. PULMONARY ARTERIES: Main pulmonary arteries are normal in caliber. No filling defects within the pul monary arteries to suggest pulmonary embolus. LUNGS AND AIRWAYS: Perihilar and dependent upper and lower lobe fluffy groundglass opacities with int erlobular septal thickening. Central airways are patent.. PLEURA: No pneumothorax. Small layering pleural effusions larger on the right.. HEART AND MEDIASTINUM: The visualized thyroid gland is normal. No mediastinal, hilar, or axillary lym phadenopathy. Heart is unremarkable. No pericardial effusion. SOFT TISSUES AND BONES: No acute osseous abnormality. No significant soft tissue finding. UPPER ABDOMEN: Unremarkable. IMPRESSION: No evidence of acute central pulmonary emboli. Central and dependent predominant fluffy groundglass opacities, with interstitial thickening, and sma ll layering effusions. Findings are most suggestive of pulmonary edema.
[2024-08-03] MEDS: carvediloL 25 MG TAB PO SCH (10:16)
[2024-08-03] MEDS: HYDRALAZINE HCL 25 MG TABLET PO SCH (10:16)
--- NOTE | 2024-08-03 11:03 | P.PN ---
Date of Service: 08/03/24 Subjective Rapid called early this morning, Shortness of breath Pulmonary edema noted, on high flow 10 L this AM ROS 10 point ROS as noted above, otherwise negative Physical Exam General: Alert and Oriented x3, uncomfortable HEENT: Atraumatic, Normocephalic, PERRLA Neck: Supple, 2+ carotid pulse no bruit Respiratory: Clear BBS, Normal air movement, on High flow 10 L Cardiovascular: Normal pulses, RRR, Normal S1 S2 Capillary refill: <2 Seconds Gastrointestinal: Soft and benign on palpation, NT/ND Musculoskeletal: No clubbing Integumentary: No rashes Neurological: Normal speech, Normal tone Vitals Reviewed Problem list Symptomatic anemia ESRD on dialysis [facility] Anemia of chronic disease Fatigue Pulmonary Edema HTN Assessment and Plan Symptomatic anemia ESRD on dialysis [facility] Anemia of chronic disease Fatigue -H/H 8.0/23.6, continue to monitor -1 unit PRBC (08/02) -nephrology consulted, dialysis again today Since CTA chest was performed -BUN/creatinine 48/11.6, monitor in the AM labs -Oliguric Pulmonary Edema -CTA Chest reports "Central and dependent predominant fluffy groundglass opacities, with interstitial thickening, and small layering effusions. Findings are most suggestive of pulmonary edema" -Requiring high oxygen needs -Dialysis for volume control HTN -continue home medications as appropriate DVT ppx heparin Full code LOS 2-3 days Time Spent Managing Pts Care (In Minutes): 35
[2024-08-03 16:01] LABS: HBsAG Nonreactive Report Report; Hepatitis B Surface Ab - Quant 76.39 mIU/mL (<8.0); Hepatitis B surface AG Interp. Nonreactive (Nonreactive)
[2024-08-03] MEDS: NIFEDIPINE XL 90 MG TABLET PO SCH (20:36)
--- NOTE | 2024-08-03 21:17 | P.CNS ---
Date of Consult: 08/03/24 Reason for Consult: ESRD Requesting Physician: tanika wilhelm Chief Complaint: Symptomatic anemia, ESRD History of Present Illness: Maynor Mariano is a 38 year old male with Pmhx ESRD dialysis TTHS, anemia, and hypertension who presents to the ED with fatigue, H/H 6.6/19.9. He reports coming to the ED yesterday and refused transfusion at that time. He has returned with increased fatigue and abnormal lab values. He is now agreeabl e for transfusion and 1 unit packed red blood cells started transfusing in the ED prior to going to dialysis were was completed Laboratory evaluation H&H 6.6/19.9, platelets 132, Eosinophils 12.5. Maynor will be admitted to hospitalist service for dialysis and Anemia of chronic disease. 11:10 This 38 yrs old Black Male presents to ER via Ambulatory with complaints of Abnormal rt Lab Results. 11:10 Patient is a Thursday, , Thursday dialysis patient who was seen last night for rt symptomatic anemia to 6.7. Ports feeling fatigued, somewhat short of breath but denies other acute complaints, denies active bleeding. Declined transfusion at that time, is back today for transfusion. Denies other acute complaints, symptoms are moderate in severity, no other aggravating or elevating factors. Allergies No Known Allergies Allergy (Unverified 08/02/24 15:30) Home medications list reviewed: Yes Home Medications: Carvedilol [Coreg] 25 mg PO BID 08/02/24 Hydralazine [Apresoline*] 100 mg PO TID 08/02/24 Nifedipine [Procardia Xl] 90 mg PO BID* 08/02/24 - Past Medical/Surgical History Diabetic: No -: Anemia of chronic disease -: ESRD (Dr. Mcelroy/ [facility]) -: HTN -: Thyroidectomy rt arm parathyroid transplant -: Feliz/screws Rt Leg -: Kidney Transplant Rt side -: Appendectomy -: fistula Lft arm -: Heart stent - Social History Alcohol use: No CD- Drugs: No Caffeine use: Yes Place of Residence: Home Review of Systems 10-point ROS is otherwise unremarkable General: Weakness, Malaise Respiratory: SOB with Excertion Physical Examination Temp Pulse Resp BP Pulse Ox 97.9 F 85 14 227/122 H 97 08/03/24 16:00 08/03/24 20:36 08/03/24 16:00 08/03/24 20:36 08/03/24 16:00 General: In no apparent distress, Oriented x3, Cooperative HEENT: Atraumatic Neck: Supple Respiratory: Normal air movement Cardiovascular: No edema, Regular rate/rhythm Gastrointestinal: Soft and benign, Non-distended Musculoskeletal: No clubbing, No contractures Integumentary: No rashes, No cyanosis Neurological: Normal speech Laboratory Data (last 24 hrs) 08/02/24 14:18 Sodium Cancelled Potassium Cancelled BUN Cancelled Creatinine Cancelled Glucose Cancelled Total Bilirubin Cancelled AST Cancelled ALT Cancelled Alkaline Phosphatase Cancelled Imagings Data: EXAM: CT Chest For Pe Angio INDICATION: [facility] MAIN hypoxia COMPARISON: Chest radiograph of the same day. FINDINGS: LINES/TUBES: None. PULMONARY ARTERIES: Main pulmonary arteries are normal in caliber. No filling defects within the pulmonary arteries to suggest pulmonary embolus. LUNGS AND AIRWAYS: Perihilar and dependent upper and lower lobe fluffy groundglass opacities with interlobular septal thickening. Central airways are patent.. PLEURA: No pneumothorax. Small layering pleural effusions larger on the right.. HEART AND MEDIASTINUM: The visualized thyroid gland is normal. No mediastinal, hilar, or axillary lymphadenopathy. Heart is unremarkable. No pericardial effusion. SOFT TISSUES AND BONES: No acute osseous abnormality. No significant soft tissue finding. UPPER ABDOMEN: Unremarkable. IMPRESSION: No evidence of acute central pulmonary emboli. XR Chest, 2 Views CLINICAL INDICATION: The patient is 38 years old and is Male; SOB, cough TECHNIQUE: Frontal and lateral views of the chest. COMPARISON: No relevant prior studies available. FINDINGS: LUNGS: Bilateral perihilar streaky and central predominant perihilar and basilar hazy alveolar opacities, favoring atypical pneumonia over pulmonary edema. PLEURAL SPACE: No appreciable pleural effusion or pneumothorax. HEART: See below. MEDIASTINUM: Prominence of the cardiomediastinal silhouette, likely exaggerated secondary to portable technique, lordotic positioning, and patient body habitus. BONES/JOINTS: Multilevel spondylosis. VASCULATURE: Azygous vein appears within normal limits. IMPRESSION: Bilateral perihilar streaky and central predominant perihilar and basilar hazy alveolar opacities, favoring atypical pneumonia over pulmonary edema. Conclusions/Impression: ESRD on HD -Acute HD today HTN with CKD/ CHF -Continue Coreg 25 BID -Continue Nifedipine ER 90 BID -Continue Hydralazine 100 TID Diastolic CHF, A/C -Low sodium diet -UF with HD Anemia in CKD -Retacrit qHD -PRBC as ordered CKD MBD Secondary HyperParathyroidism -Start Calcitriol Hospitalist and ER notes reviewed Case reviewed with the
[2024-08-03] MEDS: EPOETIN ALFA-EPBX 10,000 UNIT/ML VIAL ONE (22:40)
[2024-08-03] MEDS: EPOETIN ALFA 10,000 UNIT/ML VIAL SQ ONE (23:27)
[2024-08-04 01:51] VITALS: BMI 26.2
[2024-08-04 04:42] LABS: Absolute Basophils 0.1 K/uL (0-0.5); Absolute Eosinophils 0.3 K/uL (0-0.5); Absolute Lymphocytes (CBC) 0.7 K/uL (0.7-4.9); Absolute Monocytes 0.4 K/uL (0.1-1.3); Absolute Neutrophil 4.3 K/uL (1.8-8.0); Basophils % 1.2 % (0-1.3); Eosinophils % 4.6 % (0-4.4); Hematocrit 23.2 % (39.6-49.0); Hemoglobin 7.7 g/dL (13.6-17.9); Lymphocytes % 12.8 % (15.3-44.8); MCH 29.2 pg (27.0-35.0); MCHC 33.3 g/dL (32.0-36.0); MCV 87.6 fL (80-100); MPV 8.2 fL (7.6-11.3); Monocytes % 6.4 % (3.3-12.3); Nucleated Red Blood Cells % 0.2 % (0-0); Platelets 124 thou/uL (152-406); RBC Red Blood Cell Count 2.65 M/uL (4.33-5.43); Red Cell Distribution Width 20.5 % (12.1-15.2)
[2024-08-04 05:23] LABS: Anion Gap 11.1 mEq/L (5.0-15.0); Potassium 4.1 mEq/L (3.5-5.1)
--- NOTE | 2024-08-04 07:10 | ECHO ---
HEIGHT: 6 ft 1 in WEIGHT: 199 lb 1.6 oz DATE OF STUDY: 08/03/[address]: Marylin Bundy MD 2-DIMENSIONAL: YES M.MODE: YES DOPPLER: YES COLOR FLOW: YES TDS: PORTABLE: YES DEFINITY: BUBBLE STUDY: DIAGNOSIS: SHORTNESS OF BREATH, HYPOXIA CARDIAC HISTORY: CATHERIZATION: YES SURGERY: NO PROSTHETIC VALVE: NO PACEMAKER: NO MEASUREMENTS (cm) DIASTOLIC (NORMALS) SYSTOLIC (NORMALS) IVSd 1.3 (0.6-1.2) LA Diam 3.3 (1.9-4.0) LVEF 60-65% LVIDd 5.1 (3.5-5.7) LVIDs 3.4 (2.0-3.5) %FS 33% LVPWd 1.3 (0.6-1.2) Ao Diam 3.2 (2.0-3.7) 2 DIMENSIONAL ASSESSMENT: RIGHT ATRIUM: NOT WELL SEEN LEFT ATRIUM: ENLARGED RIGHT VENTRICLE: NOT WELL SEEN LEFT VENTRICLE: MODERATE LEFT VENTRICULAR HYPERTROPHY TRICUSPID VALVE: MODERATE TRICUSPID REGURGITATION MITRAL VALVE: NORMAL PULMONIC VALVE: MILD PULMONIC INSUFFICIENCY AORTIC VALVE: NORMAL PERICARDIAL EFFUSION: NONE AORTIC ROOT: NORMAL LEFT VENTRICULAR WALL MOTION: NORMAL DOPPLER/COLOR FLOW: SEE BELOW COMMENTS: 1. SEVERE CONCENTRIC LEFT VENTRICULAR HYPERTROPHY 2. NORMAL LEFT VENTRICULAR EJECTION FRACTION 60-65% 3. MODERATE TO SEVERE TRICUSPID REGURGITATION 4. SEVERE PULMONARY HYPERTENSION WITH RIGHT VENTRICULAR SYSTOLIC PRESSURE GREATER THAN 90 mmHg 5. RECOMMEND RIGHT HEART CATHETERIZATION TECHNOLOGIST: CHELA HERNANDEZ
[2024-08-04] MEDS: DOCUSATE NA 100 MG CAP PO SCH (09:00)
--- NOTE | 2024-08-04 09:29 | P.PN ---
Date of Service: 08/04/24 Subjective Awake stating he feels better, Back on oxygen, reports intermittent SOB ECHO showing severe pulmonary HTN Cardiology consulted, nephrology following Long conversation with nephrology this AM, /girlfriend is upset about the last weeks situation with dialysis and his Hgb level. Good explanation was provided by myself and Dr. Reese to help understand the bigger picture for why he has become anemic with SOB and the need for recurring dialysis. ROS 10 point ROS as noted above, otherwise negative Physical Exam General: AAOx3, uncomfortable HEENT: Atraumatic, Normocephalic, PERRLA Neck: Supple, 2+ carotid pulse no bruit Respiratory: nonlabored breathing, room air Cardiovascular: Normal pulses, NSR, Normal S1 S2 Capillary refill: <2 Seconds Gastrointestinal: Soft on palpation, NT/ND, active bowel sounds Musculoskeletal: No clubbing Integumentary: No rashes Neurological: Normal speech, Normal tone Vitals Reviewed Problem list Symptomatic anemia ESRD on dialysis [facility] Anemia of chronic disease Fatigue Severe pulmonary hypertension Diastolic Congestive heart failure preserved EF Pulmonary Edema HTN Assessment and Plan Symptomatic anemia ESRD on dialysis [facility] Anemia of chronic disease Fatigue -H/H 7.7/23.2, continue to monitor -1 unit PRBC (08/02) -nephrology consulted, dialysis again today Since CTA chest was performed -initial BUN/creatinine 48/11.6, continue to monitor -Oliguric Severe pulmonary hypertension Diastolic Congestive heart failure preserved EF -ECHO reports "EF 60-65%, severe concentric left ventricular hypertrophy, Moderate to severe tricuspid regurgitation, severe pulmonary HTN wth ventricular systolic pressure greater than 90mmHg." -cardiology consulted -Dialysis to manage volume management Pulmonary Edema -CTA Chest reports "Central and dependent predominant fluffy groundglass opacities, with interstitial thickening, and small layering effusions. Findings are most suggestive of pulmonary edema" -Requiring high oxygen needs -Dialysis for volume control HTN -continue home medications as appropriate Hospital Interval course 08/04/24 -ECHO showing severe tricuspid regurgitation, Recommended heart cath, cardiology consulted -Dialysis today, Per Dr. Reese, adjustments will be made for dialysis with this new found CHF -Blood pressure elevated, making adjustments to medications -1 Unit PRBC given 08/02, hemaglobin continues to drop DVT ppx heparin Full code LOS 2-3 days Time Spent Managing Pts Care (In Minutes): 35
[2024-08-04] MEDS ORDERED: DOXAZOSIN 2 MG TAB PO SCH (09:30)
--- NOTE | 2024-08-04 09:30 | P.PN ---
Date of Service: 08/04/24 Vital Signs Temp Pulse Resp BP Pulse Ox 98.8 F 73 17 163/100 H 93 08/04/24 04:00 08/04/24 04:00 08/04/24 04:00 08/04/24 04:00 08/04/24 04:00 Medications Acetaminophen (Acetaminophen 325 Mg Tablet) 650 mg PO Q4HP PRN PRN Reason: Temp > 100 F or mild pain Albuterol Sulfate (Albuterol 2.5 Mg/3 Ml Neb Suzi) 2.5 mg NEB [id number] [facility] Last Admin: 08/04/24 07:48 Dose: 2.5 mg Azithromycin (Azithromycin 250 Mg Tab) 250 mg PO DAILY [facility] Stop: 08/06/24 09:01 Last Admin: 08/03/24 06:07 Dose: 250 mg Calcitriol (Calcitrol 0.25 Mcg Cap) 0.5 mcg PO DAILY [facility] Carvedilol (Carvedilol 25 Mg Tab) 25 mg PO BID [facility] Last Admin: 08/03/24 20:36 Dose: 25 mg Docusate Sodium (Docusate Na 100 Mg Cap) 100 mg PO BID [facility] Doxazosin Mesylate (Doxazosin 2 Mg Tab) 2 mg PO BID [facility] Guaifenesin/Codeine Phosphate (Guaifenesin/Codeine 5ml Ucup) 5 ml PO Q6HP PRN PRN Reason: COUGH Last Admin: 08/03/24 22:38 Dose: 5 ml Heparin Sodium (Porcine) (Heparin 5000 Unit/Ml 1 Ml Vial) 5,000 unit SQ Q8HR [facility] Last Admin: 08/04/24 00:58 Dose: 5,000 unit Heparin Sodium (Porcine) (Heparin 1,000 Unit/Ml Vial) 2,000 unit IV EVERY HD PRN PRN Reason: Prevent HD System Clotting Last Admin: 08/03/24 09:57 Dose: 2,000 unit Hydralazine HCl (Hydralazine Hcl 25 Mg Tablet) 100 mg PO TID [facility] Last Admin: 08/03/24 20:36 Dose: 100 mg Cefepime HCl 1 gm/ Sodium (Chloride) 100 mls @ 200 mls/hr IV DAILY [facility]; Protocol Last Admin: 08/03/24 06:08 Dose: 100 mls Ipratropium [place] (Ipratropium Brom 0.5mg/2.5ml) 0.5 mg NEB [id number] [facility] Last Admin: 08/04/24 07:48 Dose: 0.5 mg Losartan Potassium (Losartan Potassium 50 Mg Tablet) 50 mg PO BID [facility] Methylprednisolone Sodium Succinate (Methylprednisolone 40 Mg Inj) 40 mg IV Q8HR [facility] Last Admin: 08/04/24 00:58 Dose: Not Given Nifedipine (Nifedipine Xl 90 Mg Tablet) 90 mg PO BID [facility] Last Admin: 08/03/24 20:36 Dose: 90 mg Lab Results (last 24 hrs) 08/02/24 11:39: ABO/Rh O POSITIVE, Solid Phase Ab Screen Negative, Crossmatch See Detail Assessment/ Plan: Nephrology Dyspnea improved No chest pain No acute events overnight Vitals, medications, blood work and imaging reviewed in the chart General: In no apparent distress, Oriented x3, Cooperative HEENT: Atraumatic Neck: Supple Respiratory: Normal air movement Cardiovascular: No edema, Regular rate/rhythm Gastrointestinal: Soft and benign, Non-distended Musculoskeletal: No clubbing, No contractures Integumentary: No rashes, No cyanosis Neurological: Normal speech Laboratory Data (last 24 hrs) 08/02/24 14:18 Sodium Cancelled Potassium Cancelled BUN Cancelled Creatinine Cancelled Glucose Cancelled Total Bilirubin Cancelled AST Cancelled ALT Cancelled Alkaline Phosphatase Cancelled Imagings Data: EXAM: CT Chest For Pe Angio INDICATION: HS MAIN hypoxia COMPARISON: Chest radiograph of the same day. FINDINGS: LINES/TUBES: None. PULMONARY ARTERIES: Main pulmonary arteries are normal in caliber. No filling defects within the pulmonary arteries to suggest pulmonary embolus. LUNGS AND AIRWAYS: Perihilar and dependent upper and lower lobe fluffy groundglass opacities with interlobular septal thickening. Central airways are patent.. PLEURA: No pneumothorax. Small layering pleural effusions larger on the right.. HEART AND MEDIASTINUM: The visualized thyroid gland is normal. No mediastinal, hilar, or axillary lymphadenopathy. Heart is unremarkable. No pericardial effusion. SOFT TISSUES AND BONES: No acute osseous abnormality. No significant soft tissue finding. UPPER ABDOMEN: Unremarkable. IMPRESSION: No evidence of acute central pulmonary emboli. XR Chest, 2 Views CLINICAL INDICATION: The patient is 38 years old and is Male; SOB, cough TECHNIQUE: Frontal and lateral views of the chest. COMPARISON: No relevant prior studies available. FINDINGS: LUNGS: Bilateral perihilar streaky and central predominant perihilar and basilar hazy alveolar opacities, favoring atypical pneumonia over pulmonary edema. PLEURAL SPACE: No appreciable pleural effusion or pneumothorax. HEART: See below. MEDIASTINUM: Prominence of the cardiomediastinal silhouette, likely exaggerated secondary to portable technique, lordotic positioning, and patient body habitus. BONES/JOINTS: Multilevel spondylosis. VASCULATURE: Azygous vein appears within normal limits. IMPRESSION: Bilateral perihilar streaky and central predominant perihilar and basilar hazy alveolar opacities, favoring atypical pneumonia over pulmonary edema. LEFT VENTRICULAR WALL MOTION: NORMAL 1. SEVERE CONCENTRIC LEFT VENTRICULAR HYPERTROPHY 2. NORMAL LEFT VENTRICULAR EJECTION FRACTION 60-65% 3. MODERATE TO SEVERE TRICUSPID REGURGITATION 4. SEVERE PULMONARY HYPERTENSION WITH RIGHT VENTRICULAR SYSTOLIC PRESSUREGREATER THAN 90 mmHg 5. RECOMMEND RIGHT HEART CATHETERIZATION Conclusions/Impression: ESRD on HD -Acute HD today HTN with CKD/ CHF -Continue Coreg 25 BID -Start Doxazosin 2mg BID -Continue Nifedipine ER 90 BID -Start Losartan 50mg BID -Continue Hydralazine 100 TID Diastolic CHF, A/C Pulmonary HTN/ Severe TR -Low sodium diet -UF with HD Anemia in CKD -Retacrit qHD -PRBC as ordered CKD MBD Secondary HyperParathyroidism -Continue Calcitriol Hospitalist notes reviewed Case reviewed with Dr. Samaniego/ Hospitalist team
[2024-08-04] MEDS: CALCITROL 0.25 MCG CAP PO SCH (09:34)
[2024-08-04 10:21] VITALS: O2SAT 93
[2024-08-04] MEDS: DOXAZOSIN 2 MG TAB PO SCH (14:22)
[2024-08-04] MEDS: LOSARTAN POTASSIUM 50 MG TABLET PO SCH (14:23)
[2024-08-04 14:26] VITALS: BP 182/93; TEMP 98.2
--- NOTE | 2024-08-04 19:09 | P.DS ---
Admission Date: 08/02/24 Discharge Date: 08/04/24 Disposition: ELOPED Discharge Condition: GOOD Reason for Admission: Symptomatic anemia, ESRD Brief History of Present Illness: Diagnosis Symptomatic anemia ESRD on dialysis TTHS Anemia of chronic disease Fatigue Severe pulmonary hypertension Diastolic Congestive heart failure preserved EF Pulmonary Edema HTN HPI 08/02/24 Maynor Mariano is a 38 year old male with Pmhx ESRD dialysis TTHS, anemia, and hypertension who presents to the ED with fatigue, H/H 6.6/19.9. He reports coming to the ED yesterday and refused transfusion at that time. He has returned with increased fatigue and abnormal lab values. He is now agreeable for transfusion and 1 unit packed red blood cells started transfusing in the ED prior to going to dialysis were was completed Laboratory evaluation H&H 6.6/19.9, platelets 132, Eosinophils 12.5. Maynor will be admitted to hospitalist service for dialysis and Anemia of chronic disease. Dr. Reese consulted. Hospital Course: Maynor was admitted and treated for the following diagnosis Symptomatic anemia ESRD on dialysis TTHS Anemia of chronic disease Fatigue Severe pulmonary hypertension Diastolic Congestive heart failure preserved EF Pulmonary Edema HTN -Initial H/H 6.6/19.9 1 unit PRBC (08/02) -nephrology following, dialysis x3 this admission-Fluid volume was managed with Dialysis, he received dialysis this morning (08/04) -ECHO reports "EF 60-65%, severe concentric left ventricular hypertrophy, Moderate to severe tricuspid regurgitation, severe pulmonary HTN with ventricular systolic pressure greater than 90mmHg." -cardiology consulted -CTA Chest reports "Central and dependent predominant fluffy groundglass opacities, with interstitial thickening, and small layering effusions. Findings are most suggestive of pulmonary edema" -He intermittently Required high levels of oxygen -continued home medications and adjusted blood pressure medications for better control Telemetry called the nurse because Rm [id number] was no longer on telemetry, Nurse went to the room and found his belongings gone and the telemetry box on the bed. Nurse notified the doctor that Maynor eloped. Maynor has multiple medical problems and newly informed of Severe pulmonary HTN and Diastolic congestive heart failure, Dr. Reese and myself spend time discussing these new findings as well as the continual drop in his hemoglobin. The plan was made to adjust the dialysis run to compensate for the additional volume. He was requiring oxygen as he became short of breath frequently throughout the day. Maynor mohanoped from the hospital on 08/04/24. Vital Signs/Physical Exam: Temp Pulse Resp BP Pulse Ox 98.2 F 76 16 182/93 H 97 08/04/24 12:00 08/04/24 12:00 08/04/24 12:00 08/04/24 12:00 08/04/24 12:00 Laboratory Data at Discharge: WBC 5.70 thou/uL (4.3-10.9) 08/04/24 04:12 Hgb 7.7 g/dL (13.6-17.9) L 08/04/24 04:12 Hct 23.2 % (39.6-49.0) L 08/04/24 04:12 Plt Count 124 thou/uL (152-406) L 08/04/24 04:12 Sodium 138 mEq/L (136-145) 08/04/24 04:12 Potassium 4.1 mEq/L (3.5-5.1) 08/04/24 04:12 BUN 40 mg/dL (7-18) H 08/04/24 04:12 Creatinine 9.70 mg/dL (0.70-1.30) H 08/04/24 04:12 Glucose 124 mg/dL (74-106) H 08/04/24 04:12 Phosphorus 3.0 mg/dL (2.5-4.9) 08/04/24 04:12 Magnesium 2.0 mg/dL (1.6-2.4) 08/04/24 04:12 Total Bilirubin 0.5 mg/dL (0.2-1.0) 08/03/24 04:12 AST 23 U/L (15-37) 08/03/24 04:12 ALT 30 U/L (16-61) 08/03/24 04:12 Alkaline Phosphatase 108 U/L (45-117) 08/03/24 04:12 Home Medications: Carvedilol [Coreg] 25 mg PO BID 08/02/24 Hydralazine [Apresoline*] 100 mg PO TID 08/02/24 Nifedipine [Procardia Xl] 90 mg PO BID* 08/02/24 Followup: NONE,NONE [Primary Care Provider] -
--- NOTE | 2024-08-10 13:07 | EKG ---
Test Date: 2024-08-03 Test Time: 04:35:08 [employer]: OVI MEASUREMENT RESULTS: Intervals: Rate: 76 TX: 170 QRSD: 90 QT: 426 QTc: 479 Joy: P: 69 TX: 170 QRS: 24 T: 61 INTERPRETIVE STATEMENTS: Normal sinus rhythm Possible Left atrial enlargement Nonspecific T wave abnormality Prolonged QT Abnormal ECG Compared to ECG 08/02/2024 00:38:33 Possible ischemia no longer present T-wave abnormality still present Electronically Signed On 08-10-24 12:47:02 CDT by Ahsan Sigala
== END 2024-08-04 17:31 | disposition left against medical advice (07) | DRG 291 ==
LOC: ER 10:39 → ERHOLD 16:03 → 2ND 17:53
PROVIDERS: ADMIT Internal Medicine; ATTEND Internal Medicine
PROC: 5A1D70Z Performance of Urinary Filtration, Intermittent, Less than 6 Hours Per Day (ICD-10-PCS; principal; 2024-08-02)
PROC: 30233N1 Transfusion of Nonautologous Red Blood Cells into Peripheral Vein, Percutaneous Approach (ICD-10-PCS; 2024-08-02)
DX: I13.2 Hypertensive heart and chronic kidney disease with heart failure and with stage 5 chronic kidney disease, or end stage renal disease (principal); I50.33 Acute on chronic diastolic (congestive) heart failure; N18.6 End stage renal disease; Z94.0 Kidney transplant status; N25.81 Secondary hyperparathyroidism of renal origin; D63.1 Anemia in chronic kidney disease; I27.20 Pulmonary hypertension, unspecified; I07.1 Rheumatic tricuspid insufficiency; F17.210 Nicotine dependence, cigarettes, uncomplicated; Z99.2 Dependence on renal dialysis; Z79.02 Long term (current) use of antithrombotics/antiplatelets; Z90.49 Acquired absence of other specified parts of digestive tract; Z79.899 Other long term (current) drug therapy; Z91.158 Patient's noncompliance with renal dialysis for other reason
CPT/HCPCS: 36415; 36430; 71046; 71275; 80048; 80053; 80076; 82805; 83605; 83735; 83880; 84100; 84145; 84484; 85014; 85018; 85025; 85610; 86140; 86706; 86850; 86900; 86901; 86920; 87340; 90935; 93005; 93306; 99285; J0692; J1644; J1938; J2919; J7050; J7613; J7644; P9016; Q5106; Q9967